=== PATIENT | male | born 1950 | race Caucasian/White ===

== ENCOUNTER → 2025-04-17 | Outpatient (CLI) | payer OTHER ==
[~2025-04-17] MED LIST: CELECOXIB200 M1 PO; ENTRESTO 24 MG1 EACH PO; FUROSEMIDE40 MG PO; METOPROLOL SUCC25 M2 PO; ROSUVASTATIN CA10 MG PO; TERAZOSIN HCL10 M1 PO
== END | disposition home or self-care (01) ==
LOC: CARD 13:43
PROVIDERS: ATTEND Internal Medicine Cardiovascular Disease
DX: I05.9 Rheumatic mitral valve disease, unspecified (principal); I25.10 Atherosclerotic heart disease of native coronary artery without angina pectoris; I42.9 Cardiomyopathy, unspecified; Z02.4 Encounter for examination for driving license